=== PATIENT | male | born 1980 | race Two or more races ===

== ENCOUNTER 2020-01-26 01:07 | Emergency (ER) | payer SELFPAY ==
[~2020-01-26] VITALS: Ht 175.3 cm; Wt 81.5 kg
[2020-01-26 01:09] VITALS: BP 134/92
[2020-01-26] MEDS ORDERED: LIDOCAINE 1%-EPI 1:100K, 20ML ONE (01:30)
[2020-01-26] MEDS ORDERED: LIDOCAINE 1%-EPI 1:100K, 20ML SQ ONE (01:30)
[2020-01-26] MEDS ORDERED: DIPH,PERTUSS(ACELL),TET VAC/PF 0.5 ML IM-VACC ONE ×2 (01:31→02:00)
[2020-01-26] MEDS ORDERED: DIPHTHERIA-TETANUS ADULT 0.5ML IM-VACC ONE (02:00)
--- NOTE | 2020-01-26 03:23 | NUR ---
BREAK RN: DRESSED WOUND AND GAVE SUPPLIES TO AID IN APPROPRIATE SELF CARE AT HOME. PATIENT VERBALIZED UNDERSTANDING OF SELF CARE AND AT HOME CARE. NO NOTED ADDITIONAL NEEDS AT THIS TIME.
== END 2020-01-26 03:42 | disposition home or self-care (01) ==
LOC: ED 03:34
DX: S51.812A Laceration without foreign body of left forearm, initial encounter (principal); X58.XXXA Exposure to other specified factors, initial encounter; Y93.89 Activity, other specified; Y92.89 Other specified places as the place of occurrence of the external cause; Y99.8 Other external cause status
CPT/HCPCS: 12002; 12032; 99285